=== PATIENT | female | born 2000 | race Caucasian/White ===

== ENCOUNTER 2022-09-09 17:19 | Emergency (ER) | payer MEDICAID, OTHER ==
[~2022-09-09] VITALS: Ht 157.5 cm; Wt 47.0 kg
[2022-09-09 17:20] VITALS: BP 144/88
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
[2022-09-09] MEDS ORDERED: ACHD5005 PO (17:42)
[2022-09-09] MEDS ORDERED: TETANUS,DIPTH,PERTUSS P/F (BOOSTRIX) 0.5 ML VIAL IM ONE (17:45)
[2022-09-09] MEDS ORDERED: HYDROcodone/APAP 5 MG/325 MG (LORTAB) TAB PO ONE (17:45)
[2022-09-09] MEDS ORDERED: KETOROLAC 15 MG/ML VIAL IM ONE (17:45)
[2022-09-10] MEDS ORDERED: ACHD5005 PO (11:14)
== END 2022-09-09 17:52 | disposition home or self-care (01) ==
LOC: ER FS 17:22
DX: T23.241A Burn of second degree of multiple right fingers (nail), including thumb, initial encounter (principal); Z28.310 Unvaccinated for COVID-19; X19.XXXA Contact with other heat and hot substances, initial encounter; Y92.009 Unspecified place in unspecified non-institutional (private) residence as the place of occurrence of the external cause; Y93.G3 Activity, cooking and baking
CPT/HCPCS: 90715; 99283